=== PATIENT | female | born 1965 | race Caucasian/White ===

== ENCOUNTER → 2025-04-24 | Outpatient (CLI) | payer BC ==
[~2025-04-24] MED LIST: ASPI81TA26 PO; LIDO1ADH93 TOP; METH-1164 PO; OXYC1CAP2 PO; VITACAP8 PO; ZYRTTAB8 PO
== END ==
LOC: M ONCR 08:11
PROVIDERS: ATTEND General Practice
DX: C90.00 Multiple myeloma not having achieved remission (principal); Z80.3 Family history of malignant neoplasm of breast

== ENCOUNTER → 2025-05-01 | Outpatient (RCR) | payer BC | LOC: M ONCR 04-24 09:08 | PROVIDERS: ATTEND General Practice | DX: Z51.0 Encounter for antineoplastic radiation therapy (principal); C90.00 Multiple myeloma not having achieved remission ==

== ENCOUNTER 2025-05-05 09:44 | Outpatient (RCR) | payer BC ==
[2025-06-18] MEDS ORDERED: MAGN200T PO (13:57)
[2025-06-18] MEDS ORDERED: VITA100093 (13:57)
[2025-06-18] MEDS ORDERED: ACET-683 PO (13:57)
[2025-06-18] MEDS ORDERED: CETI10CH PO (13:57)
[2025-06-18] MEDS ORDERED: ACYC-438 (13:57)
[2025-06-18] MEDS ORDERED: LENA25CA (13:57)
== END 2025-05-31 ==
LOC: M ONCR 09:44
PROVIDERS: ATTEND General Practice
DX: Z51.0 Encounter for antineoplastic radiation therapy (principal); C90.00 Multiple myeloma not having achieved remission

== ENCOUNTER → 2025-05-27 | Outpatient (CLI) | payer BC ==
[2025-05-27 11:14] LABS: ALT/SGPT 19.0 U/L (7.0-40); AST/SGOT 17.0 U/L (<34); CALCIUM LEVEL 8.4 MG/DL (8.5-10.1); CARBON DIOXIDE LEVEL 24.0 MMOL/L (20-31); CHLORIDE LEVEL 108.0 MMOL/L (98-107); CHOLESTEROL LEVEL 165.0 MG/DL (<200); CHOLESTEROL RISK RATIO 4.37 (<5); CREATININE FOR GFR 0.81 MG/DL (0.55-1.30); GLOMERULAR FILTRATION RATE 83.6 (>51); LDL CHOLESTEROL 100.7 MG/DL (<100); NON-HDL-C 127.3 MG/DL; POTASSIUM SERUM 3.4 MMOL/L (3.5-5.1); SODIUM LEVEL 144.0 MMOL/L (136-145); TRIGLYCERIDES LEVEL 133.0 MG/DL (<150)
[2025-05-27 11:41] LABS: ESTIMATED AVERAGE GLUCOSE 126.0 MG/DL (60-110)
== END ==
LOC: M LAB 07:48
PROVIDERS: ATTEND Student in an Organized Health Care Education/Training Program
DX: K76.0 Fatty (change of) liver, not elsewhere classified (principal); E66.9 Obesity, unspecified